=== PATIENT | female | born 1970 | race Caucasian/White ===

== ENCOUNTER → 2020-06-05 | Outpatient (CLI) | payer MEDICARE, OTHER ==
[~2020-06-05] VITALS: Ht 160 cm; Wt 71.7 kg
[~2020-06-05] MED LIST: DILANTIN100 MG PO; FIORICET TAB1 EA PO; IBUPROFEN600 MG PO; IRON18 MG PO; KLONOPIN TAB 00.5 MG PO; LYRICA150 MG PO; OXYCODONE HCL10 MG PO; OXYCODONE HCL15 MG PO; RANITIDINE HCL300 M1 PO; SEROQUEL100 MG PO; ZOLOFT50 MG PO
== END ==
LOC: OPSV 08:00
DX: Z45.89 Encounter for adjustment and management of other implanted devices (principal); R56.9 Unspecified convulsions
CPT/HCPCS: 96523; J1642

== ENCOUNTER → 2020-11-11 | Outpatient (CLI) | payer MEDICARE, OTHER ==
[~2020-11-11] VITALS: Ht 160 cm; Wt 71.7 kg
== END ==
LOC: OPSV 10-30 11:00
DX: R56.9 Unspecified convulsions (principal)
CPT/HCPCS: 96523; J1642

== ENCOUNTER → 2020-12-16 | Outpatient (CLI) | payer MEDICARE, OTHER ==
[~2020-12-16] VITALS: Ht 160 cm; Wt 71.7 kg
== END ==
LOC: OPSV 12-09 09:00
DX: R56.9 Unspecified convulsions (principal)
CPT/HCPCS: 96523; J1642